=== PATIENT | female | born 1970 | race Caucasian/White ===

== ENCOUNTER 2021-01-27 21:07 | Emergency (ER) | payer OTHER ==
[2021-01-27 22:22] LABS: BASOPHIL 0.8 % (0-2); EOSINOPHIL 2.5 % (0-5); HCT 42.7 % (37.0-47.0); HGB 14.8 g/dl (12.5-16.0); LYMPHOCYTE 22.1 % (15-48); MCH 32.2 pg (25.0-31.0); MCHC 34.7 g/dL (32.0-36.0); MCV 92.8 fL (78.0-100.0); MONOCYTE 8.6 % (0-12); MPV 10.8 fL (6.0-9.5); NEUTROPHIL 65.8 % (41-80); NRBC 0; PLT 197 K/uL (150-400); RDW 13.3 % (11.5-14.0); WBC 8.4 K/uL (4.0-10.5)
[2021-01-27 22:32] LABS: BILIRUBIN NEGATIVE (NEGATIVE); BLOOD 2+ Ery/uL (NEGATIVE); CLARITY CLEAR (CLEAR); COLOR YELLOW (YELLOW); GLUCOSE (U) NORMAL (NORMAL); LEUKOCYTES NEGATIVE Leu/uL (NEGATIVE); NITRITE NEGATIVE (NEGATIVE); PROTEIN NEGATIVE (NEGATIVE); SPECIFIC GRAVITY 1.025 (1.001-1.030); UROBILINOGEN 0.2 mg/dL (0.2-1.0); pH 6.5 (5.0-9.0)
[2021-01-27 22:38] LABS: ALBUMIN 2.6 g/dL (3.4-5.0); BILIRUBIN - TOTAL 0.9 mg/dL (0.2-1.0); BUN/CREAT RATIO (CALC) 13.4 RATIO; CREATININE 1.12 mg/dL (0.51-0.95); GLOBULIN (CALCULATION) 2.8 g/dL; POTASSIUM 4.9 mmol/L (3.5-5.1); TOTAL PROTEIN 5.4 g/dL (6.4-8.2)
[2021-01-27 22:45] LABS: BACTERIA TRACE; URINARY WBC RARE
[2021-01-28] MEDS ORDERED: CEPHALEXIN500 MG PO (00:37)
[2021-01-28] MEDS ORDERED: PREDNISONE 20MG20 MG PO (00:37)
== END 2021-01-28 00:50 | disposition home or self-care (01) ==
LOC: FER 21:07
PROVIDERS: Emergency Medicine
DX: T78.40XA Allergy, unspecified, initial encounter (principal); L03.116 Cellulitis of left lower limb; L03.115 Cellulitis of right lower limb; R10.9 Unspecified abdominal pain; Z98.51 Tubal ligation status; Z88.0 Allergy status to penicillin; Z88.5 Allergy status to narcotic agent
CPT/HCPCS: 36415; 80053; 81001; 82150; 83690; 85025; 96372; J1200; J2930; J3410; J7030; Q9967